=== PATIENT | male | born 2005 | race Two or more races ===

== ENCOUNTER 2025-03-26 03:30 | Emergency (ER) | payer MEDICAID, SELFPAY ==
[2025-03-26 03:36] VITALS: BMI 23.3
[2025-03-26 03:37] VITALS: BP 138/32; PULSE 62; RESP 18; TEMP 36.4; O2SAT 97; BMI 23.3
--- NOTE | 2025-03-26 03:43 | XR_ITS ---
Examination: CT cervical spine without contrast 2-D sagittal reconstructions 2-D coronal reconstructions 3-D reconstructions. Exam date and time:March 26, 2025, 0442 hours INDICATIONS: Onset of right-sided neck pain today CTDI:vol (mGy) 15.4 DLP: (mGycm) 327 Technique: Multiple 2 mm axial sections of the cervical spine have been obtained. The coronal and sagittal reconstructions have been obtained. 3-D reconstructions have been obtained. Low dose protocols were performed. One or more of the following dose reduction techniques were used; automated exposure control, adjustment of the mA and/or KV according to patient size, use of iterative reconstruction technique. Findings: Axial sections demonstrate intact base of the skull. C1 exhibit satisfactory relationship to the odontoid. No acute cervical vertebral body fracture seen. Alignment posterior spinous processes satisfactory. Impression: No acute cervical fracture.
--- NOTE | 2025-03-26 03:44 | EDRME_ITS ---
Rapid Medical Screening Exam RME Arrival date/time: 03/26/25 03:30 This is a case of 29-year-old male who came in the emergency room due to right- sided neck pain sharp in character for 2 days denies any injury or trauma denies any numbness weakness tingling sensation incontinence to urine or stool denies any sore throat cough or nasal congestion Chief Complaint: Neck Pain/Injury Time Seen by Provider: 03/26/25 03:42 Vital signs: Vital Signs Temperature 97.6 F 03/26/25 03:37 Pulse Rate 62 03/26/25 03:37 Respiratory Rate 18 03/26/25 03:37 Blood Pressure 138/32 H 03/26/25 03:37 Pulse Oximetry (%) 97 03/26/25 03:37 Oxygen Delivery Method Aerosol Mask 03/26/25 03:37
[2025-03-26] MEDS: HYDROcodone/APAP 5/325 TABLET 1 TAB PO (04:22)
--- NOTE | 2025-03-26 05:37 | PRELIM_ITS ---
CT scan of the cervical spine without intravenous contrast (axial sections with sagittal and coronal reformats) March 26, 2025 0442 hours Clinical History: NECK OPAIN Comparison: No prior study is available for comparison. Findings: There is no fracture or subluxation. The prevertebral soft tissues are unremarkable. Impression: No evidence of fracture or subluxation. Report Electronically Signed By: Joana Bloom 03/26/2025 5:36:12 AM [EST]
--- NOTE | 2025-03-26 05:46 | PD.EDNECK ---
ED Neck Injury Pain RME/HPI General Chief Complaint: Neck Pain/Injury Stated Complaint: R SIDE OF NECK HURTS Time Seen by Provider: 03/26/25 03:42 Arrival date/time: 03/26/25 03:30 This is a case of 29-year-old male who came in the emergency room due to right-sided neck pain sharp in character for 2 days denies any injury or trauma denies any numbness weakness tingling sensation incontinence to urine or stool denies any sore throat cough or nasal congestion Limitations: no limitations RME / HPI RME / HPI Narrative: 03/26/25 03:30 This is a case of 29-year-old male who came in the emergency room due to right-sided neck pain sharp in character for 2 days denies any injury or trauma denies any numbness weakness tingling sensation incontinence to urine or stool denies any sore throat cough or nasal congestion Related Data Previous Rx's ?Medication ?Instructions ?Recorded cyclobenzaprine 10 mg tablet 10 mg PO BID PRN muscle spasm #15 03/26/25 tabs ibuprofen 600 mg tablet (IBU) 600 mg PO Q6H PRN pain #30 tabs 03/26/25 Allergies Allergy/AdvReac Type Severity Reaction Status Date / Time No Known Allergies Allergy Verified 03/26/25 03:38 Review of Systems Review of Systems Systems Reviewed: All systems reviewed, normal except as documented Constitutional Constitutional: Reports system reviewed and no additional complaints, except as documented ENT Ears, Nose, Mouth, and Throat: Reports neck pain Cardiovascular Cardiovascular: Reports system reviewed and no additional complaints, except as documented and Reports as per HPI Respiratory Respiratory: Reports system reviewed and no additional complaints, except as documented and Reports as per HPI Gastrointestinal Gastrointestinal: Reports system reviewed and no additional complaints, except as documented and Reports as per HPI Genitourinary Genitourinary: Reports system reviewed and no additional complaints, except as documented and Reports as per HPI Musculoskeletal Musculoskeletal: Reports system reviewed and no additional complaints, except as documented and Reports neck pain Neurologic Neurologic: Reports system reviewed and no additional complaints, except as documented and Reports as per HPI Past Medical History Social History SMOKING STATUS: Never smoker ED Exam General Limitations: Present no limitations General appearance: Present alert and in no apparent distress Head Head exam: Present atraumatic Eye Eye exam: Present normal appearance, PERRL and EOMI ENT ENT exam: Present normal exam, normal oropharynx and mucous membranes moist Neck Neck exam: Present normal inspection, full ROM and trachea midline; Absent tenderness, meningismus or lymphadenopathy Expanded Neck Exam Neck exam focused ED: Present midline tenderness and other (Mild tenderness on the right side of the neck no crepitation no deformity no redness no swelling no cellulitis ROM intact neurovascular intact); Absent paraspinal tenderness, tenderness (other), tracheal deviation, anterior neck swelling or thyroid enlargement Chest Chest inspection: Present normal inspection and symmetric chest wall rise Respiratory Respiratory exam: Present normal lung sounds bilaterally; Absent respiratory distress, wheezes, stridor, accessory muscle use or prolonged expiratory phase Cardiovascular Cardiovascular exam: Present regular rate and normal rhythm; Absent bradycardia, normal heart sounds, systolic murmur or diastolic murmur Abdominal Exam Abdominal exam: Present soft and normal bowel sounds Extremities Exam Extremities exam: Present normal inspection and full ROM Back Exam Back exam: Present normal inspection and full ROM Neurological Exam Neurological exam: Present alert, oriented X3, CN II-XII intact and other (Awake alert oriented x 4 no focal deficit GCS 15/15 steady gait normal memory normal speech no slurring of speech no facial droop CN II through XII is normal steady gait negative Babinski) Psychiatric Psychiatric exam: Present normal affect and normal mood Skin Skin exam: Present warm, dry, intact and normal color Course Quality Measures none Orders Category Date Time Status CT cervical spine wo con Stat Exams 03/26/25 03:43 Taken Dexamethasone Inj [Decadron Inj] Med 03/26/25 05:39 Discontinued 10 mg IM X1 ONE HYDROcodone*/APAP 5/325 [[place] 5/325] Med 03/26/25 04:05 Discontinued 1 tab PO X1 ONE Ketorolac Inj [Toradol Inj] Med 03/26/25 05:39 Discontinued 30 mg IM X1 ONE Vital Signs Vital signs: Vital Signs Temperature 97.6 F 03/26/25 03:37 Pulse Rate 62 03/26/25 03:37 Respiratory Rate 18 03/26/25 03:37 Blood Pressure 138/32 H 03/26/25 03:37 Pulse Oximetry (%) 97 03/26/25 03:37 Oxygen Delivery Method Aerosol Mask 03/26/25 03:37 Oxygen saturation 97% in room air normal Neck Pain MDM Narrative MDM Narrative:: This is a case of 29-year-old male who came in the emergency room due to right-sided neck pain sharp in character for 2 days denies any injury or trauma denies any numbness weakness tingling sensation incontinence to urine or stool denies any sore throat cough or nasal congestion physical examination patient is awake alert oriented not in distress nontoxic looking neurological exam is normal awake alert oriented x 4 no focal deficit GCS 15 awaiting steady gait neck exam noted mild to moderate tenderness on the tenderness on the right side of the neck no swelling no crepitation no deformity no cellulitis no paraspinal no paravertebral tenderness leg raise exam is normal ROM intact neurovascular intact CT scan showed no normal no fracture no subluxation patient was given [place] and Toradol for pain and dexamethasone for inflammation patient condition markedly improved pain improved and resolved patient will be discharged with stable condition patient was discharged with ibuprofen and Flexeril as muscle spasm patient is informed for any recurrence persistent worsening symptoms they need to return to the emergency room immediately or call 911 at the time of exam no signs or symptoms of cauda equina Patient was discharged with comfortable condition walking with stable gait. Patient verbalized no further complains explained diagnosis and answered patient question. Patient is comfortable with the proposed management plan including the need to follow up with his/her primary care physician and any specialist if applicable Discussed patient for any urgent condition or worsening sx, He/She needed to go to emergency room immediately or call 911. Patient acknowledge the responsibility to follow up as instructed and to monitor her/his symptoms. For any persistence of the symptoms for more than 3-5 days return precaution advised. Discussed the result of the test and was given printed discharge instruction Patient data External records reviewed:: [facility] previous records Clinical information provided by:: patient (None) Social determinants that could affect healthcare access:: none Patient has the following chronic illnesses:: None How is presenting disease/condition affected by chronic disease/condition?: no chronic disease Evaluation data The following diagnostics were reviewed and interpreted by me:: radiology exam(s) Lab and/or radiology exams considered but not ordered:: Reviewed Interpretation Summary: Reviewed Medications / Prescriptions Medications or Prescriptions considered but not ordered:: Given Medication administrations:: Medication Administration History Discontinued Medications Hydrocodone Bitart/Acetaminophen (Hydrocodone/Apap 5/325 Tablet) 1 tab PO X1 ONE Stop: 03/26/25 04:06 Last Admin: 03/26/25 04:22 Dose: 1 tab Documented By: NICOLE Dexamethasone Sodium Phosphate (Dexamethasone Sod Phos Inj 10 Mg/Ml Vial) 10 mg IM X1 ONE Stop: 03/26/25 05:40 Ketorolac Tromethamine (Ketorolac Inj 60 Mg/2 Ml Vial) 30 mg IM X1 ONE Stop: 03/26/25 05:40 Given Consultations Consultation(s) initiated? (list below): No Diagnosis Neck Differential Diagnosis: disc disorder of cervical region, strain of neck muscle and other (Neck muscle spasm) Most likely diagnosis given after review of the tests above:: Neck muscle spasm Admission Indicated Admission indicated?: not indicated Explain why admission is indicated or not indicated:: Not indicated Admission Request Was there a request for admission?: No Admission Attestation Admission request attestation: Not indicated Disposition Plan Disposition Plan: Discharge Discharge Attestation Discharge Attestation: The patient and all family members were given an opportunity to ask questions and understood the discharge instructions. Discharge instructions specifically effects, indications for sooner follow up or return to the emergency department, and the expected course of current diagnosis. Patient condition: Stable Discharge Plan Plan Patient Disposition: HOME (Self Care) Patient condition on transfer: Stable Prescriptions/Referrals Prescriptions/Med Rec: New ibuprofen [IBU] 600 mg tablet 600 mg PO Q6H PRN (Reason: pain) Qty: 30 0RF cyclobenzaprine 10 mg tablet 10 mg PO BID PRN (Reason: muscle spasm) Qty: 15 0RF Referrals: Amado Martin MD [Primary Care Provider] - In 1 week Problem List Clinical Impression: Muscle spasms of neck Patient/Caregiver Discharge Instructions Education Materials: ED Neck Spasm, No Trauma Additional Instructions: Follow-up with your primary care physician in 2 days for reevaluation worsening symptoms or any emergent concerns such as numbness weakness tingling sensation incontinence to urine or stool call 911 or go to the nearest emergency take your medication as directed ice pack as needed for pain is advised Print Language: Bruneian Stand Alone Forms: [employer] Award Info., Patient Portal Info Letter ROSELINE/RICHA Supervising Physician ROSELINE/RICHA Supervising Physician: DR MORRISSEY
[2025-03-26] MEDS: KETOROLAC INJ 60 MG/2 ML VIAL 30 MG IM (05:58)
[2025-03-26] MEDS: DEXAMETHASONE SOD PHOS INJ 10 MG/ML VIAL IM (05:59)
== END 2025-03-26 06:45 | disposition home or self-care (01) ==
PROVIDERS: Emergency Provider Emergency Medicine; PCP Family Medicine
DX: M62.838 Other muscle spasm (principal); M54.2 Cervicalgia
CPT/HCPCS: 72125; 96372; 99283; J1100; J1885; A9270

== ENCOUNTER 2025-06-29 07:44 | Emergency (ER) | payer OTHER, SELFPAY ==
[2025-06-29 07:54] VITALS: BP 135/78; PULSE 75; RESP 18; TEMP 36.8; O2SAT 96; BMI 26.4
--- NOTE | 2025-06-29 08:14 | EDNOTE_ITS ---
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 Denies any loss of vision, double vision, flashing lights, black spots, photophobia. Patient states that his vision is a little bit intermittently blurry. Related Data Previous Rx's ?Medication ?Instructions ?Recorded cyclobenzaprine 10 mg tablet 10 mg PO BID PRN muscle s pasm #15 03/26/25 tabs ibuprofen 600 mg tablet (IBU) 600 mg PO Q6H PRN pain # 30 tabs 03/26/25 erythromycin 5 mg/gram (0.5 %) eye 1 applic ophthalmic (eye) QID #3.5 06/29/25 ointment grams Allergies Allergy/AdvReac Type Severity Reaction Status Date / Time No Known Allergies Allergy Verified 06/29/25 07:51 ED Exam Narrative Physical exam: Constitutional: Vital Signs Reviewed. Well appearing. No acute distress. Not toxic appearing. Head: Normocephalic, atraumatic. Eyes: Periorbital regions normal to inspection and palpation bilaterally Conjunctiva injected B/L. Sclera anicteric bilaterally. Pupils equal, round, and reactive to light bilaterally. Extraocular movements intact bilaterally. Visual moeller intact by confrontation bilaterally. No hyphema or hypopyon bilaterally. ENT: Mucous membranes moist. Neck: Trachea midline. Normal range of motion. No nuchal rigidity. Respiratory: Normal effort. No respiratory distress or accessory muscle use. Neuro: Alert and oriented. Speech normal. No focal gross motor or sensory deficits observed. Skin: Warm, dry, normal color. Psych: Pleasant. Normal affect. Cooperative. Course Course Course Narrative: [facility] Concern for subclinical corneal abrasion versus chemical conjunctivitis with elevated PH of 8 Doubt any other none superficial corneal/conjunctiva injury given lack of vision changes, photophobia, floaters, flashing lights, etc. Doubt significant caustic keratoconjunctivitis (no perilimbal ischemia, PH is not reduced) however this is likely a mild presentation Doubt traumatic iritis or uveitis as well given lack of photophobia or vision changes No APD subjectively light is not dim. No hyphema. Doubt globe penetration (given negative seidels, No Teardrop-shaped pupil, No Subconjunctival hemorrhage involving entire (360 degree) sclera) Doubt Lens dislocation (No Diplopia, raised IOP, floaters, iris tremor) No corneal haziness or opacity after 1L of NS in each eye pH is now 7.4 qing-lima class 1 case and plan Plan to update tdap, ophthalmic abx prophylactically, f/u with pmd/workers comp and optho in 1-2 days, strict ER return precautions advised per RN visual acuity 20/30 R eye, 2020 L eye Quality Measures none Orders Category Date Time Status ED Eye Irrigation ONCE Care 06/29/25 08:10 Active ED Eye Irrigation ONCE Care 06/29/25 08:10 Active Tonometer to Bedside X1 Care 06/29/25 08:10 Active Visual Acuity NOW Care 06/29/25 08:11 Active Hernandez Lamp to Bedside X1 Care 06/29/25 08:10 Completed pH,Body Fluid Stat Lab 06/29/25 08:15 Ordered Erythromycin Op Oint 0.5% Med 06/29/25 12:37 Discontinued 1 gm BOTH EYES X1 ONE Fluorescein Sodium [Bio-Eysica] Med 06/29/25 08:10 Discontinued 1 mg BOTH EYES X1 ONE TET,DIP/PERT AC (Adult)-Tdap [Boostrix Adult (Tdap) Med 06/29/25 08:10 Discontinued Vacc] 0.5 ml IMI .ONCE ONE TETRACAINE Op [place] 0.5% [Pontocaine Op [place] 0.5%] Med 06/29/25 08:10 Discontinued 1 drop BOTH EYES X1 ONE Reevaluation(s) Reevaluation #1: At the time of reassessment, the patient remains alert and oriented ?3 with GCS 15. Vitals are normal, pain is controlled, and the patient is tolerating oral intake without nausea or vomiting. The patient is agreeable to discharge and verbalizes understanding of the diagnosis, studies, treatment plan, medications (including side effects/precautions), and strict ER return precautions as discussed in the ED. All concerns were addressed, and the patient is comfortable with the plan. Vital Signs Vital signs: Vital Signs Temperature 98.3 F 10/11/25 07:54 Pulse Rate 75 06/29/25 07:54 Respiratory Rate 18 06/29/25 07:54 Blood Pressure 135/78 H 06/29/25 07:54 Pulse Oximetry (%) 96 06/29/25 07:54 Oxygen Delivery Method Room Air 06/29/25 07:54 Eye Patient data External records reviewed:: None Clinical information provided by:: patient Social determinants that could affect healthcare access:: none Patient has the following chronic illnesses:: none How is presenting disease/condition affected by chronic disease/condition?: no chronic disease Evaluation data The following diagnostics were reviewed and interpreted by me:: other (specify) Lab and/or radiology exams considered but not ordered:: Labs and radiology considered, but not ordered as they were not clinically indicated at this time. Interpretation Summary: As noted Medications / Prescriptions Medications or Prescriptions considered but not ordered:: I considered prescription management (both outpatient prescriptions AND drug treatment in the ER) and decided that this was necessary and was prescribed as charted. Medication administrations:: Medication Administration History Discontinued Medications Diphtheria/Tetanus/Acell Pertussis (Diphth,Pertuss(Acell),Tet Vac 0.5 Ml Syr- Adult) 0.5 ml IMi .ONCE ONE Stop: 06/29/25 08:11 Last Admin: 06/29/25 08:40 Dose: 0.5 ml Documented By: PETE Erythromycin (Erythromycin Op Oint 0.5% 1 Gm Packet) 1 gm BOTH EYES X1 ONE Stop: 06/29/25 12:38 Fluorescein Sodium (Fluorescein Sod 1 Mg Strp) 1 mg BOTH EYES X1 ONE Stop: 06/29/25 08:11 Tetracaine HCl (Tetracaine Pf Op [place] 0.5% 4 Ml Drpette) 1 drop BOTH EYES X1 ONE Stop: 06/29/25 08:11 As noted Consultations Consultation(s) initiated? (list below): Yes Consultation #1 (Physician, Specialty, Details): Dr. Dos Santos who agreed with plan of care after discussion of case, pt safe for d/c Time: 13:00 Diagnosis Eye Problem Differential Diagnosis: corneal abrasion, conjunctivitis and acute iritis Most likely diagnosis given after review of the tests above:: chemical exposureas ago at the time of reassessment, the patient remains alert and oriented ?3 with GCS 15. Vitals are normal, pain is controlled, and the patient is tolerating oral intake without nausea or vomiting. The patient is agreeable to discharge and verbalizes understanding of the diagnosis, studies, treatment plan, medications (including side effects/precautions), and strict ER return precautions as discussed in the ED. All concerns were addressed, and the patient is comfortable with the plan. Admission Indicated Admission indicated?: not indicated Admission Request Was there a request for admission?: No Disposition Plan Disposition Plan: Discharge Discharge Attestation Discharge Attestation: The patient and all family members were given an opportunity to ask questions and understood the discharge instructions. Discharge instructions specifically effects, indications for sooner follow up or return to the emergency department, and the expected course of current diagnosis. Patient condition: Stable Discharge Plan Plan Patient Disposition: HOME (Self Care) Prescriptions/Referrals Prescriptions/Med Rec: New erythromycin 5 mg/gram (0.5 %) ointment 1 applic ophthalmic (eye) QID Qty: 3.5 0RF Rx Instructions: apply 1.2 inch to affected eye 4 times daily for 7 days No Action ibuprofen [IBU] 600 mg tablet 600 mg PO Q6H PRN (Reason: pain) Qty: 30 0RF cyclobenzaprine 10 mg tablet 10 mg PO BID PRN (Reason: muscle spasm) Qty: 15 0RF Referrals: Amado Martin MD [Primary Care Provider, Family Practice] - In 1 week Problem List Clinical Impression: Chemical exposure of eye Patient/Caregiver Discharge Instructions Education Materials: ED Eye Exposure, Chemical Additional Instructions: Follow up with your primary medical doctor and an recruiting administrator and an recruiting administrator within 48 hours. Return to the Emergency Room immediately for any new, worsening, continuing symptoms or any concerns at all. Return to the Emergency Room within 48 hours if you are unable to follow up with your primary medical doctorand an opthalmologist within 48 hours. Print Language: Mauritian Stand Alone Forms: [employer] Award Info., Work/School Release, Patient Portal Info Letter ROSELINE/RICHA Supervising Physician ROSELINE/RICHA Supervising Physician: Dr. Dos Santos
[2025-06-29] MEDS: DIPHTH,PERTUSS(ACELL),TET VAC 0.5 ML SYR- ADULT IMi (08:40)
--- NOTE | 2025-06-29 08:55 | PC.NURSE ---
RN contacted poison control for patient exposure to bilat eye with bleach at work. Per poison control recommendations: Irrigate bilateral eyes with Normal saline or Lactated ringers wait 15min then check pH of eye with wnl at 7.0 if greater than 8.0 cont irrigation then continue with eye exam with fluorescing and check for abrasions and consult ophthalmology, discharge home with eye antibiotic/ointment.
[2025-06-29 10:05] VITALS: BP 141/78; PULSE 65; RESP 16; TEMP 36.6; O2SAT 97
[2025-06-29 12:02] VITALS: BP 122/68; PULSE 58; RESP 19; TEMP 36.7; O2SAT 95
[2025-06-29] MEDS: Erythromycin Op Oint 0.5% 1 GM PACKET BOTH EYES (13:04)
[2025-06-29] MEDS: TETRACAINE PF OP SOL 0.5% 4 ML DRPETTE 1 DROP BOTH EYES (13:04)
[2025-06-29] MEDS: FLUORESCEIN SOD 1 MG STRP BOTH EYES (13:04)
[2025-06-29 13:26] VITALS: BP 125/70; PULSE 61; RESP 16; TEMP 36.9; O2SAT 97
== END 2025-06-29 13:34 | disposition home or self-care (01) ==
PROVIDERS: Emergency Provider Emergency Medicine; PCP Family Medicine
DX: T15.92XA Foreign body on external eye, part unspecified, left eye, initial encounter (principal); T15.91XA Foreign body on external eye, part unspecified, right eye, initial encounter; W44.8XXA Other foreign body entering into or through a natural orifice, initial encounter
CPT/HCPCS: 83986; 90471; 90715; 99284; A9270